=== PATIENT | female | born 1940 | race Caucasian/White ===

== ENCOUNTER 2017-12-26 21:17 | Inpatient (IN) | payer OTHER, BC ==
[~2017-12-26] VITALS: Ht 154.9 cm; Wt 73.6 kg
[~2017-12-26 21:17] MED LIST: AMLODIPINE BESYL5 MG PO; AZOR 5/20 MG1 TABLET PO; BENAZEPRIL HCL20 MG PO; CARVEDILOL3.125 MG PO; CLONAZEPAM0.5 MG PO; COREG3.125 M1 PO; DILANTIN100 MG PO; HYDROCHLOROTHIA25 MG PO; IRON160 M1 PO; KLONOPIN0.5 M1 PO; LABETALOL HCL200 MG PO; LIPITOR20 MG PO; LO-DOSE ASPIRIN81 M1 PO; LOTENSIN20 MG PO; OMEPRAZOLE40 M1 PO; PHENOBARBITAL32.4 MG PO; PHENYTOIN SODI100 M1 PO; PRILOSEC20 MG PO; SERTRALINE HCL50 MG PO; SIMVASTATIN20 MG PO; ZOCOR40 MG PO; ZOLOFT50 MG PO
[2017-12-27 12:32] VITALS: BP 134/62
[2017-12-27 19:22] VITALS: BP 158/78
[2017-12-27 23:51] VITALS: BP 139/67
[2017-12-28 03:50] VITALS: BP 169/65
[2017-12-28 06:01] LABS: HEMATOCRIT 28.5 % (36.0-46.0); HEMOGLOBIN 9.7 G/DL (11.9-15.5); MCV 89.1 FL (83-99)
[2017-12-28 06:26] LABS: CHLORIDE 103 MEQ/L (99-109); GFR ESTIMATE (CALCULATED) 57 mL/min/; GLUCOSE 319 mg/dL (70-99); POTASSIUM 4.3 MEQ/L (3.7-5.4); SODIUM 133 MEQ/L (136-147); UREA NITROGEN (BUN) 21 mg/dL (9-23)
[2017-12-28 08:12] VITALS: BP 131/60
[2017-12-28] MEDS ORDERED: LABETALOL HCL200 MG PO (11:16)
[2017-12-28] MEDS ORDERED: LIPITOR20 MG PO (11:16)
[2017-12-28] MEDS ORDERED: AMLODIPINE BESYL5 MG PO (11:17)
[2017-12-28 12:11] VITALS: BP 144/63
[2017-12-28 15:36] VITALS: BP 162/70
[2017-12-28 19:45] VITALS: BP 147/65
[2017-12-28 22:45] VITALS: BP 113/56
[2017-12-29 04:14] VITALS: BP 159/66
[2017-12-29 05:08] LABS: HEMATOCRIT 26.5 % (36.0-46.0); HEMOGLOBIN 9.1 G/DL (11.9-15.5); MCV 86.9 FL (83-99)
[2017-12-29 08:00] VITALS: BP 151/63
[2017-12-29 12:11] VITALS: BP 164/72
[2017-12-29 15:51] VITALS: BP 145/67
[2017-12-29] MEDS ORDERED: PRAVACHOL80 MG PO (17:24)
[2017-12-29] MEDS ORDERED: TYLENOL REGULA325 MG PO (17:25)
[2017-12-29] MEDS ORDERED: PROTONIX40 MG PO (17:26)
[2017-12-29] MEDS ORDERED: ZESTRIL20 MG PO (17:26)
[2017-12-29] MEDS ORDERED: ELIQUIS2.5 MG PO (17:27)
[2017-12-29] MEDS ORDERED: NEURONTIN100 MG PO (17:28)
[2017-12-29] MEDS ORDERED: SENOKOT S,PE1 TABLET PO (17:28)
[2017-12-29] MEDS ORDERED: ROXICODONE5 MG PO (17:29)
[2017-12-29] MEDS ORDERED: SALONPAS GEL-P1 EAC1 TD (17:34)
[2017-12-29] MEDS ORDERED: NOVOLOG 10100 UNITS/ SC (18:47)
== END 2017-12-29 17:08 | DRG 470 ==
LOC: ENRESERV 21:17 → 2SOUTH 12-27 11:56 → 3WEST 12-27 19:47
PROVIDERS: Orthopaedic Surgery
PROC: 0SRC0J9 Replacement of Right Knee Joint with Synthetic Substitute, Cemented, Open Approach (ICD-10-PCS; principal; 2017-12-27)
DX: M17.11 Unilateral primary osteoarthritis, right knee (principal); E88.81 Metabolic syndrome and other insulin resistance; E11.9 Type 2 diabetes mellitus without complications; G40.909 Epilepsy, unspecified, not intractable, without status epilepticus; I10 Essential (primary) hypertension; E78.2 Mixed hyperlipidemia; K21.9 Gastro-esophageal reflux disease without esophagitis; F34.1 Dysthymic disorder
CPT/HCPCS: 80048; 82948; 85014; 85018; C1713; J0690; J1815; J1885; J2250; J2795

== ENCOUNTER 2017-12-29 16:59 | Inpatient (IN) | payer OTHER, BC ==
[~2017-12-29] VITALS: Ht 154.9 cm; Wt 76.9 kg
[2017-12-29] MEDS ORDERED: PRAVACHOL80 MG PO (17:24)
[2017-12-29] MEDS ORDERED: TYLENOL REGULA325 MG PO (17:25)
[2017-12-29] MEDS ORDERED: ZESTRIL20 MG PO (17:26)
[2017-12-29] MEDS ORDERED: PROTONIX40 MG PO (17:26)
[2017-12-29] MEDS ORDERED: ELIQUIS2.5 MG PO (17:27)
[2017-12-29] MEDS ORDERED: SENOKOT S,PE1 TABLET PO (17:28)
[2017-12-29] MEDS ORDERED: NEURONTIN100 MG PO (17:28)
[2017-12-29] MEDS ORDERED: ROXICODONE5 MG PO (17:29)
[2017-12-29] MEDS ORDERED: SALONPAS GEL-P1 EAC1 TD (17:34)
[2017-12-29 17:47] VITALS: BP 135/64
[2017-12-29] MEDS ORDERED: NOVOLOG 10100 UNITS/ SC (18:47)
[2017-12-29 23:54] VITALS: BP 143/65
[2017-12-30 04:59] VITALS: BP 162/70
[2017-12-30 05:54] LABS: BASOPHIL (%) 0.3 % (0-1); EOSINOPHIL (%) 2.6 % (0-5); EOSINOPHIL COUNT 0.2 K/uL (0-0.3); HEMATOCRIT 25.2 % (36.0-46.0); HEMOGLOBIN 8.9 G/DL (11.9-15.5); IMMATURE GRANULOCYTE (%) 0.4 % (0.0-0.7); LYMPHOCYTE (%) 25.9 % (15-42); MCH 30.1 PG (29.0-34.0); MCHC 35.3 G/DL (30.0-36.0); MCV 85.1 FL (83-99); MONOCYTE (%) 9.9 % (3-12); MONOCYTE COUNT 0.8 K/uL (0-0.8); NEUTROPHIL (%) 60.9 % (45-76); NEUTROPHIL COUNT 4.6 K/uL (1.8-6.4); PLATELET COUNT 209 K/uL (156-360); RBC DIS.WIDTH-CV 12.3 % (11.8-14.6); RBC DIS.WIDTH-SD 38.4 % (39-53); RED BLOOD COUNT 2.96 M/uL (3.80-5.20); WHITE BLOOD COUNT 7.6 K/uL (4.1-10.2)
[2017-12-30 06:18] LABS: ALBUMIN 3.2 G/DL (3.2-4.8); ALKALINE PHOSPHATASE 93 IU/L (3-129); ALT (GPT) 7 IU/L (3-49); AST (GOT) 13 IU/L (2-34); CHLORIDE 97 MEQ/L (99-109); CREATININE 0.8 MG/DL (0.6-1.3); GFR ESTIMATE (CALCULATED) > 59 mL/min/; GLUCOSE 186 mg/dL (70-99); SODIUM 127 MEQ/L (136-147); TOTAL BILIRUBIN 0.5 MG/DL (0.0-1.0); TOTAL PROTEIN 5.3 G/DL (6.4-8.3); UREA NITROGEN (BUN) 12 mg/dL (9-23)
[2017-12-30 15:17] VITALS: BP 125/58
[2017-12-30 17:44] LABS: URIC ACID 4.4 mg/dL (3.1-9.2)
[2017-12-30 17:57] LABS: THYROTROPIN (TSH) 6.6 MIU/L (0.4-5.5)
[2017-12-31 05:29] VITALS: BP 113/69
[2017-12-31 05:52] LABS: BASOPHIL (%) 0.5 % (0-1); EOSINOPHIL (%) 4.6 % (0-5); EOSINOPHIL COUNT 0.3 K/uL (0-0.3); HEMOGLOBIN 8.4 G/DL (11.9-15.5); IMMATURE GRANULOCYTE (%) 0.3 % (0.0-0.7); LYMPHOCYTE (%) 28.2 % (15-42); LYMPHOCYTE COUNT 1.8 K/uL (1.0-2.8); MCH 30.1 PG (29.0-34.0); MONOCYTE (%) 11.6 % (3-12); MONOCYTE COUNT 0.8 K/uL (0-0.8); NEUTROPHIL (%) 54.8 % (45-76); NEUTROPHIL COUNT 3.6 K/uL (1.8-6.4); PLATELET COUNT 210 K/uL (156-360); RBC DIS.WIDTH-CV 12.4 % (11.8-14.6); RED BLOOD COUNT 2.79 M/uL (3.80-5.20); WHITE BLOOD COUNT 6.5 K/uL (4.1-10.2)
[2017-12-31 06:17] LABS: CHLORIDE 94 MEQ/L (99-109); CREATININE 0.9 MG/DL (0.6-1.3); GFR ESTIMATE (CALCULATED) > 59 mL/min/; GLUCOSE 185 mg/dL (70-99); POTASSIUM 3.8 MEQ/L (3.7-5.4); SODIUM 124 MEQ/L (136-147); UREA NITROGEN (BUN) 16 mg/dL (9-23)
[2017-12-31 14:08] LABS: CHLORIDE 95 MEQ/L (99-109); CREATININE 0.8 MG/DL (0.6-1.3); GFR ESTIMATE (CALCULATED) > 59 mL/min/; GLUCOSE 215 mg/dL (70-99); POTASSIUM 3.9 MEQ/L (3.7-5.4); SODIUM 124 MEQ/L (136-147); UREA NITROGEN (BUN) 16 mg/dL (9-23)
[2017-12-31 16:15] VITALS: BP 137/71
[2018-01-01 03:58] VITALS: BP 140/70
[2018-01-01 06:30] LABS: BASOPHIL (%) 0.5 % (0-1); EOSINOPHIL COUNT 0.3 K/uL (0-0.3); HEMATOCRIT 24.1 % (36.0-46.0); HEMOGLOBIN 8.4 G/DL (11.9-15.5); IMMATURE GRANULOCYTE (%) 0.7 % (0.0-0.7); LYMPHOCYTE (%) 27.5 % (15-42); LYMPHOCYTE COUNT 1.7 K/uL (1.0-2.8); MCH 29.9 PG (29.0-34.0); MCHC 34.9 G/DL (30.0-36.0); MCV 85.8 FL (83-99); MONOCYTE (%) 12.1 % (3-12); MONOCYTE COUNT 0.7 K/uL (0-0.8); NEUTROPHIL (%) 54.2 % (45-76); NEUTROPHIL COUNT 3.3 K/uL (1.8-6.4); PLATELET COUNT 237 K/uL (156-360); RBC DIS.WIDTH-CV 12.5 % (11.8-14.6); RBC DIS.WIDTH-SD 39.6 % (39-53); RED BLOOD COUNT 2.81 M/uL (3.80-5.20); WHITE BLOOD COUNT 6.1 K/uL (4.1-10.2)
[2018-01-01 07:15] LABS: ALBUMIN 3.2 G/DL (3.2-4.8); ALKALINE PHOSPHATASE 96 IU/L (3-129); CHLORIDE 99 MEQ/L (99-109); CREATININE 0.7 MG/DL (0.6-1.3); GFR ESTIMATE (CALCULATED) > 59 mL/min/; GLUCOSE 177 mg/dL (70-99); POTASSIUM 4.3 MEQ/L (3.7-5.4); SODIUM 129 MEQ/L (136-147); TOTAL BILIRUBIN 0.4 MG/DL (0.0-1.0); TOTAL PROTEIN 5.3 G/DL (6.4-8.3); UREA NITROGEN (BUN) 14 mg/dL (9-23)
[2018-01-01 07:18] LABS: ALT (GPT) 32 IU/L (3-49); AST (GOT) 38 IU/L (2-34)
[2018-01-01 16:07] VITALS: BP 154/66
[2018-01-02 04:45] VITALS: BP 167/71
[2018-01-02 05:34] LABS: HEMATOCRIT 25.3 % (36.0-46.0); HEMOGLOBIN 8.5 G/DL (11.9-15.5); MCH 29.6 PG (29.0-34.0); MCHC 33.6 G/DL (30.0-36.0); MCV 88.2 FL (83-99); PLATELET COUNT 260 K/uL (156-360); RBC DIS.WIDTH-CV 12.9 % (11.8-14.6); RBC DIS.WIDTH-SD 41.1 % (39-53); RED BLOOD COUNT 2.87 M/uL (3.80-5.20); WHITE BLOOD COUNT 6.8 K/uL (4.1-10.2)
[2018-01-02 05:58] LABS: CHLORIDE 102 MEQ/L (99-109); CREATININE 0.7 MG/DL (0.6-1.3); GFR ESTIMATE (CALCULATED) > 59 mL/min/; GLUCOSE 187 mg/dL (70-99); POTASSIUM 4.4 MEQ/L (3.7-5.4); SODIUM 133 MEQ/L (136-147); UREA NITROGEN (BUN) 14 mg/dL (9-23)
[2018-01-02 15:29] VITALS: BP 158/70
[2018-01-02 21:16] VITALS: BP 168/76
[2018-01-03 05:15] VITALS: BP 150/67
[2018-01-03 15:33] VITALS: BP 154/82
[2018-01-04 05:07] VITALS: BP 161/79
[2018-01-04 15:26] VITALS: BP 143/69
[2018-01-05 05:33] VITALS: BP 160/70
[2018-01-05 06:39] LABS: CHLORIDE 102 MEQ/L (99-109); CREATININE 0.8 MG/DL (0.6-1.3); GFR ESTIMATE (CALCULATED) > 59 mL/min/; GLUCOSE 156 mg/dL (70-99); POTASSIUM 5.4 MEQ/L (3.7-5.4); SODIUM 133 MEQ/L (136-147); UREA NITROGEN (BUN) 13 mg/dL (9-23)
[2018-01-05 15:29] VITALS: BP 139/63
[2018-01-05 17:18] LABS: URIC ACID 4.3 mg/dL (3.1-9.2)
[2018-01-06 05:03] VITALS: BP 150/71
[2018-01-06 06:56] LABS: CHLORIDE 103 MEQ/L (99-109); CREATININE 0.8 MG/DL (0.6-1.3); GFR ESTIMATE (CALCULATED) > 59 mL/min/; GLUCOSE 155 mg/dL (70-99); SODIUM 133 MEQ/L (136-147); UREA NITROGEN (BUN) 11 mg/dL (9-23)
[2018-01-06 15:53] VITALS: BP 144/67
[2018-01-07 05:13] VITALS: BP 158/69
[2018-01-07 06:21] LABS: CHLORIDE 104 MEQ/L (99-109); CREATININE 0.8 MG/DL (0.6-1.3); GFR ESTIMATE (CALCULATED) > 59 mL/min/; GLUCOSE 166 mg/dL (70-99); POTASSIUM 4.8 MEQ/L (3.7-5.4); SODIUM 134 MEQ/L (136-147); UREA NITROGEN (BUN) 13 mg/dL (9-23)
[2018-01-07 15:18] VITALS: BP 157/68
[2018-01-08 04:12] VITALS: BP 159/69
[2018-01-08 07:28] LABS: CHLORIDE 104 MEQ/L (99-109); CREATININE 0.8 MG/DL (0.6-1.3); GFR ESTIMATE (CALCULATED) > 59 mL/min/; GLUCOSE 167 mg/dL (70-99); POTASSIUM 4.8 MEQ/L (3.7-5.4); SODIUM 134 MEQ/L (136-147); UREA NITROGEN (BUN) 12 mg/dL (9-23)
[2018-01-08 15:33] VITALS: BP 146/62
[2018-01-09 04:03] VITALS: BP 151/70
[2018-01-09 15:15] VITALS: BP 129/58
[2018-01-10 05:01] VITALS: BP 169/70
[2018-01-10 06:43] LABS: CHLORIDE 105 MEQ/L (99-109); CREATININE 0.8 MG/DL (0.6-1.3); GFR ESTIMATE (CALCULATED) > 59 mL/min/; GLUCOSE 174 mg/dL (70-99); POTASSIUM 4.9 MEQ/L (3.7-5.4); SODIUM 134 MEQ/L (136-147); UREA NITROGEN (BUN) 12 mg/dL (9-23)
[2018-01-10 15:21] VITALS: BP 146/67
[2018-01-11 05:31] VITALS: BP 175/72
[2018-01-11 15:42] VITALS: BP 173/70
[2018-01-12 05:54] VITALS: BP 174/72
[2018-01-12 06:13] LABS: CHLORIDE 103 MEQ/L (99-109); CREATININE 0.7 MG/DL (0.6-1.3); GFR ESTIMATE (CALCULATED) > 59 mL/min/; GLUCOSE 166 mg/dL (70-99); POTASSIUM 4.4 MEQ/L (3.7-5.4); SODIUM 134 MEQ/L (136-147); UREA NITROGEN (BUN) 14 mg/dL (9-23)
[2018-01-12 16:10] VITALS: BP 144/63
[2018-01-13 04:52] VITALS: BP 150/68
[2018-01-13 15:27] VITALS: BP 143/65
[2018-01-14 05:15] VITALS: BP 159/67
[2018-01-14 06:54] LABS: HEMATOCRIT 27.5 % (36.0-46.0); HEMOGLOBIN 9.4 G/DL (11.9-15.5); MCH 30.7 PG (29.0-34.0); MCHC 34.2 G/DL (30.0-36.0); MCV 89.9 FL (83-99); PLATELET COUNT 317 K/uL (156-360); RBC DIS.WIDTH-SD 46.2 % (39-53); RED BLOOD COUNT 3.06 M/uL (3.80-5.20); WHITE BLOOD COUNT 6.2 K/uL (4.1-10.2)
[2018-01-14 07:17] LABS: ALBUMIN 3.3 G/DL (3.2-4.8); ALKALINE PHOSPHATASE 90 IU/L (3-129); ALT (GPT) 25 IU/L (3-49); AST (GOT) 17 IU/L (2-34); CHLORIDE 104 MEQ/L (99-109); CREATININE 0.7 MG/DL (0.6-1.3); GFR ESTIMATE (CALCULATED) > 59 mL/min/; GLUCOSE 163 mg/dL (70-99); POTASSIUM 4.4 MEQ/L (3.7-5.4); SODIUM 133 MEQ/L (136-147); TOTAL BILIRUBIN 0.3 MG/DL (0.0-1.0); TOTAL PROTEIN 5.6 G/DL (6.4-8.3); UREA NITROGEN (BUN) 12 mg/dL (9-23)
[2018-01-14 15:29] VITALS: BP 144/66
[2018-01-15 04:57] VITALS: BP 132/60
[2018-01-15] MEDS ORDERED: SODIUM CHLORIDE1 G1 PO (14:09)
[2018-01-15] MEDS ORDERED: ELIQUIS2.5 MG PO (14:09)
[2018-01-15] MEDS ORDERED: AMLODIPINE BESYL5 MG PO (14:09)
== END 2018-01-15 15:10 | disposition home health service (06) | DRG 560 ==
LOC: 3WEST 16:59 → ENPENDDIS 01-07 → 3WEST 01-15 15:10
PROVIDERS: Internal Medicine; Internal Medicine Nephrology; Physical Medicine & Rehabilitation Pain Medicine; Psychiatry & Neurology Neurology
PROC: F07M0ZZ Range of Motion and Joint Mobility Treatment of Musculoskeletal System - Whole Body (ICD-10-PCS; principal; 2017-12-29)
DX: Z47.1 Aftercare following joint replacement surgery (principal); Z96.651 Presence of right artificial knee joint; R26.2 Difficulty in walking, not elsewhere classified; E22.2 Syndrome of inappropriate secretion of antidiuretic hormone; E11.65 Type 2 diabetes mellitus with hyperglycemia; B37.3 Candidiasis of vulva and vagina; D62 Acute posthemorrhagic anemia; I48.91 Unspecified atrial fibrillation; G40.909 Epilepsy, unspecified, not intractable, without status epilepticus; M17.11 Unilateral primary osteoarthritis, right knee; I10 Essential (primary) hypertension; Z79.01 Long term (current) use of anticoagulants; Z79.4 Long term (current) use of insulin
CPT/HCPCS: 73560; 80048; 80048 91; 80053; 82948; 83935; 84300; 84439; 84443; 84481; 84550; 85025; 85027; 97110 GO; 97530 GP; J1815